=== PATIENT | male | born 1990 | race Caucasian/White ===

== ENCOUNTER 2021-06-30 15:19 | Emergency (ER) | payer OTHER, MEDICAID, SELFPAY ==
[2021-06-30 15:23] VITALS: BP 148/68; PULSE 65; RESP 18; TEMP 36.4; O2SAT 98; BMI 32.5
--- NOTE | 2021-06-30 23:18 | ED_ITS ---
HPI - Back Pain/Injury General Chief Complaint: Back Pain/Injury Stated Complaint: BACK SPASMS Time Seen by Provider: 06/30/21 23:18 Source: patient History of Present Illness HPI Narrative: Otherwise healthy 30-year-old gentleman with no significant medical history on no current medications presents with low back pain that is been present for 7 days getting progressively worse. Describes recurrent spasms as severe left- sided paraspinal back pain. He does not describe any specific injuries. Initially had found that his pain would be slightly less in the evenings and he could wake up pain-free over the last 1-2 days that is getting much more challenging. He has found that with the pain spasms hit he has increasing weakness bilaterally in his lower extremities to the point that he has almost fallen couple of times over the past 48 hours. He does not describe any radicular pain or paresthesias. He has no personal cancer history, no IV drug use no recent spinal manipulation or instrumentation. No fevers cough or chills. No abdominal pain no dysuria. No saddle paresthesia. No change to bowel or bladder habits otherwise. He notes that he has lost a couple lb recently with a bit of effort. He does not complain of any headaches. Related Data Previous Rx's Medication Instructions Recorded cyclobenzaprine 10 mg tablet 10 mg PO TID PRN #14 tab 07/01/21 Allergies Allergy/AdvReac Type Severity Reaction Status Date / Time No Known Drug Allergies Allergy Verified 06/30/21 15:26 Review of Systems Review of Systems Narrative: Remainder of complete review of systems is otherwise unremarkable except for that included in the HPI. Patient History tobacco type: smokeless tobacco Substance Use Type: does not use Exam Initial Vital Signs Initial Vital Signs: Vital Signs Temperature 97.5 F L 06/30/21 15:23 Pulse Rate 65 06/30/21 15:23 Respiratory Rate 18 06/30/21 15:23 Blood Pressure 148/68 H 06/30/21 15:23 Pulse Oximetry 98 06/30/21 15:23 General: Healthy appearing, in no acute distress. Able to give a complete and coherent history. Well-nourished well-developed HEENT: Moist mucous membranes, normal sclera with reactive pupils, Neck: No JVD, supple Respiratory: Lungs are clear to auscultation, no wheezing no rales no rhonchi. Full and symmetrical air movement Cardiac: Regular rate and rhythm no murmurs no bruits Abdomen: Soft, nontender, good bowel tones, no flank pain Skin: Warm and dry, no rashes Spine: No point tenderness along the thoracic or lumbar spine. Some minor paraspinous spasm left-sided lumbar area. Neurologic: Grossly neurologically intact with no obvious asymmetries or abnormalities. He describes his back feeling slightly tight with straight leg raising a but this does not elicit the dramatic waves of spasming pain of which he is complaining. Diminished but present bilateral patellar reflexes with normal ankle jerks bilaterally. Full sensation to lower extremities and feet bilaterally Extremities: No trauma, well perfused. Psych: Cooperative, appropriate insight and affect Course Orders Ordered: ED Orders 06/30/21 23:32 CT lumbar spine wo con Stat 06/30/21 23:59 CRP [C-Reactive Protein Quant] Stat Complete Blood Count AUTO DIFF Stat Comprehensive Metabolic Panel Stat Erythrocyte Sedimentation Rate Stat Discontinued Medications Hydromorphone HCl (Hydromorphone 1 Mg Inj) 0.5 mg IV NOW ONE Stop: 06/30/21 23:33 Last Admin: 06/30/21 23:56 Dose: 0.5 mg Documented by: MARIA Ketorolac Tromethamine (Ketorolac 30 Mg/Ml Vial) 15 mg IV NOW ONE Stop: 06/30/21 23:33 Last Admin: 06/30/21 23:56 Dose: 15 mg Documented by: MARIA Vital Signs Vital signs: Vital Signs - 8 hr 06/30/21 15:23 Temperature 97.5 F L Pulse Rate 65 Respiratory Rate 18 Blood Pressure 148/68 H Pulse Oximetry 98 MDM - Back Pain/Injury Lab Data Result diagrams: 06/30/21 23:59 06/30/21 23:59 Labs: Lab Results 06/30/21 06/30/21 06/30/21 Range/Units 23:59 23:59 23:59 WBC 7.7 (4.5-11.0) X10^3/uL RBC 5.28 (4.5-5.9) X10^6/uL Hgb 16.1 (13.5-17.5) g/dL Hct 47.4 (41-53) % MCV 89.9 (80-100) fL MCH 30.6 (26-34) PG MCHC 34.1 (30-36) % RDW 13.1 (11.6-14.8) % Plt Count 222 (150-400) X10^3/uL Neut % (Auto) 54.8 (50-75) % Lymph % (Auto) 32.4 (25-40) % Valley % (Auto) 9.6 (3-14) % Eos % (Auto) 2.7 (2-4) % Baso % (Auto) 0.5 (0-2) % Neut # (Auto) 4200 (5076-9933) /uL Lymph # (Auto) 2500 (1304-2634) /uL Valley # (Auto) 700 (0-900) /uL Eos # (Auto) 200 (0-450) /uL Baso # (Auto) 0 (0-100) /uL ESR 1 (0-15) MM/HR Sodium (137-145) mmol/L Potassium (3.4-5.1) mmol/L Chloride (98-107) mmol/L Carbon Dioxide (22-32) mmol/L BUN (9-20) mg/dL Creatinine (0.66-1.25) mg/dL Estimated GFR (>60) mL/min BUN/Creatinine Ratio (6-22) Glucose (70-100) mg/dL Calcium (8.4-10.2) mg/dL Total Bilirubin (0.2-1.3) mg/dL AST (17-59) IU/L ALT (<50) IU/L Alkaline Phosphatase (38-126) U/L C-Reactive Protein < 0.5 (<1.0) mg/dL Total Protein (6.3-8.2) g/dL Albumin (3.5-5.0) g/dL Globulin (1.7-4.1) g/dL Albumin/Globulin Ratio (1.0-2.8) 06/30/21 Range/Units 23:59 WBC (4.5-11.0) X10^3/uL RBC (4.5-5.9) X10^6/uL Hgb (13.5-17.5) g/dL Hct (41-53) % MCV (80-100) fL MCH (26-34) PG MCHC (30-36) % RDW (11.6-14.8) % Plt Count (150-400) X10^3/uL Neut % (Auto) (50-75) % Lymph % (Auto) (25-40) % Valley % (Auto) (3-14) % Eos % (Auto) (2-4) % Baso % (Auto) (0-2) % Neut # (Auto) (3220-0609) /uL Lymph # (Auto) (6319-6133) /uL Valley # (Auto) (0-900) /uL Eos # (Auto) (0-450) /uL Baso # (Auto) (0-100) /uL ESR (0-15) MM/HR Sodium 140 (137-145) mmol/L Potassium 3.8 (3.4-5.1) mmol/L Chloride 105 (98-107) mmol/L Carbon Dioxide 28 (22-32) mmol/L BUN 18 (9-20) mg/dL Creatinine 0.82 (0.66-1.25) mg/dL Estimated GFR > 60.0 (>60) mL/min BUN/Creatinine Ratio 22.0 (6-22) Glucose 77 (70-100) mg/dL Calcium 9.6 (8.4-10.2) mg/dL Total Bilirubin 0.5 (0.2-1.3) mg/dL AST 30 (17-59) IU/L ALT 35 (<50) IU/L Alkaline Phosphatase 59 (38-126) U/L C-Reactive Protein (<1.0) mg/dL Total Protein 7.6 (6.3-8.2) g/dL Albumin 4.6 (3.5-5.0) g/dL Globulin 3.0 (1.7-4.1) g/dL Albumin/Globulin Ratio 1.5 (1.0-2.8) Imaging Data CT lumbar spine : Radiologist's Impression: FINDINGS:? Image quality:? Excellent.? ? Bones:? There is normal bony alignment.? No acute vertebral body compression fractures.? No suspicious lytic or blastic bony lesions.? No pars defects.? ? T12-L1:? No significant disc bulge. The foramina and central canal are patent. ? L1-L2:? No significant disc bulge. The foramina and central canal are patent. ? L2-L3:? No significant disc bulge. The foramina and central canal are patent. ? L3-L4:? No significant disc bulge. The foramina and central canal are patent. ? L4-L5:? No significant disc bulge. The foramina and central canal are patent. ? L5-S1:? Right lateral disc bulge and right disc osteophyte causes moderate right foraminal stenosis.? The central canal is patent.? The left foramen is patent. ? Soft tissues:? No retroperitoneal masses or hematomas.? Visualized aorta is normal in caliber.? ? IMPRESSION:? 1. Disc disease at L5-S1 causing moderate right foraminal stenosis. 2. No other significant disc disease is identified by CT.? ? ? Dictated by: Stevo Moreno M.D. on 06/30/2021 at 23:58 ? ? [facility] Narrative Medical decision making narrative: Otherwise healthy 30-year-old gentleman with no specific red flags for concerning back pain presents with worsening lower back spasms coming in waves and getting progressively worse over the last week. This does not appear to be typical muscle spasm or back strain with the episodic spasms and bilateral lower extremity weakness progressively worsening. Of epidural abscess diskitis, neoplasm or bone abnormality are all entertained. Check routine blood work including CRP and sed rate and a CT scan of the lumbar spine as MRI to rule out epidural abscess is not immediately available. Lab work is reassuring, no evidence of obvious infection, CT scan does not suggest dramatically abnormal findings. He has some minor disc disease at L5- S1. He is moderately improved after Toradol and Dilaudid. He still is having some mild muscle spasm and would prefer muscle relaxant on discharge rather than narcotic to help with pain. Results are reviewed with him, questions are answered and he is safe for home discharge Discharge Plan Departure Patient Disposition: Home Clinical Impression: Back muscle spasm Clinical Impression: (Ruled Out): Back pain due to injury Instructions: DI for Back Spasm Activity Restrictions/Additional Instructions: Thank you for coming in today Your workup today did not show any pathologic explanation for your back pain. There does not seem to be infection, abscess, bone abnormalities or alternate reasons to explain your pain. At this point, I think it is appropriate to treat the pain and help with the muscle spasm. Using 400 mg of ibuprofen (2 [id number] pills) and 1 Tylenol every 6 hours can be very helpful in controlling pain. You can use cyclobenzaprine up to 3 times a day to help with muscle spasm. You may also find that alternating ice and heat his hopeful. If you have new or worsening symptoms, please feel free to return to the ER Prescriptions: New cyclobenzaprine 10 mg tablet 10 mg PO TID PRN (Reason: muscle spasm) Qty: 14 0RF Referrals: Ella Arnold MD [Primary Care Provider] -
--- NOTE | 2021-06-30 23:32 | DI.CT.S_ITS ---
PROCEDURE: CT LUMBAR SPINE WO CON INDICATIONS: Lumbar back pain, intermittent bilateral weakness LE TECHNIQUE: Noncontrast 3 mm thick sections acquired from the T12 level to the sacrum. Sagittal and coronal reformats were constructed. For radiation dose reduction, the following was used: automated exposure control. COMPARISON: None. FINDINGS: Image quality: Excellent. Bones: There is normal bony alignment. No acute vertebral body compression fractures. No suspicious lytic or blastic bony lesions. No pars defects. T12-L1: No significant disc bulge. The foramina and central canal are patent. L1-L2: No significant disc bulge. The foramina and central canal are patent. L2-L3: No significant disc bulge. The foramina and central canal are patent. L3-L4: No significant disc bulge. The foramina and central canal are patent. L4-L5: No significant disc bulge. The foramina and central canal are patent. L5-S1: Right lateral disc bulge and right disc osteophyte causes moderate right foraminal stenosis. The central canal is patent. The left foramen is patent. Soft tissues: No retroperitoneal masses or hematomas. Visualized aorta is normal in caliber. IMPRESSION: 1. Disc disease at L5-S1 causing moderate right foraminal stenosis. 2. No other significant disc disease is identified by CT. Dictated by: Stevo Moreno M.D. on 06/30/2021 at 23:58 Approved by: Stevo Moreno M.D. on 07/01/2021 at 0:06
[2021-06-30] MEDS: KETOROLAC 30 MG/ML VIAL 15 MG IV (23:56)
[2021-06-30] MEDS: HYDROMORPHONE 1 MG INJ 0.5 MG IV (23:56)
[2021-07-01 00:09] LABS: Add Manual Diff / Slide Review NO; Basophils Absolute Auto 0 /uL (0-100); Basophils Percent Auto 0.5 % (0-2); Eosinophils Absolute Auto 200 /uL (0-450); Eosinophils Percent Auto 2.7 % (2-4); Hematocrit 47.4 % (41-53); Hemoglobin 16.1 g/dL (13.5-17.5); Lymphocytes Absolute Auto 2500 /uL (1100-4500); Lymphocytes Percent Auto 32.4 % (25-40); Mean Corpuscular HGB Conc 34.1 % (30-36); Mean Corpuscular Hemoglobin 30.6 PG (26-34); Mean Corpuscular Volume 89.9 fL (80-100); Monocytes Absolute Auto 700 /uL (0-900); Monocytes Percent Auto 9.6 % (3-14); Neutrophils Absolute Auto 4200 /uL (1500-7000); Neutrophils Percent Auto 54.8 % (50-75); Platelet Count 222 X10^3/uL (150-400); Red Blood Cell Count 5.28 X10^6/uL (4.5-5.9); Red Cell Distribution Width 13.1 % (11.6-14.8); White Blood Cell Count 7.7 X10^3/uL (4.5-11.0)
[2021-07-01 00:24] LABS: Alanine Aminotransferase 35 IU/L (<50); Albumin 4.6 g/dL (3.5-5.0); Albumin Globulin Ratio 1.5 (1.0-2.8); Alkaline Phosphatase 59 U/L (38-126); Aspartate Aminotransferase 30 IU/L (17-59); Bilirubin Total 0.5 mg/dL (0.2-1.3); Blood Urea Nitrogen 18 mg/dL (9-20); Calcium 9.6 mg/dL (8.4-10.2); Carbon Dioxide 28 mmol/L (22-32); Chloride 105 mmol/L (98-107); Estimated Glomerular Filt Rate > 60.0 mL/min (>60); Glucose 77 mg/dL (70-100); HEMOLYSIS < 15 (0-50); Potassium 3.8 mmol/L (3.4-5.1); Sodium 140 mmol/L (137-145); Total Protein 7.6 g/dL (6.3-8.2)
[2021-07-01 00:26] LABS: C-Reactive Protein Quant < 0.5 mg/dL (<1.0)
[2021-07-01 00:31] LABS: Erythrocyte Sedimentation Rate 1 MM/HR (0-15)
[2021-07-01] MEDS: CYCLOBENZAPRINE 10 MG TABLET PO (01:12)
[2021-07-01 01:20] VITALS: BP 144/68; PULSE 70; RESP 16; O2SAT 98
== END 2021-07-01 01:21 | disposition home or self-care (01) ==
PROVIDERS: Emergency Provider Emergency Medicine; Family Provider Family Medicine; PCP Family Medicine
DX: M62.830 Muscle spasm of back (principal)
CPT/HCPCS: 36415; 72131; 80053; 85025; 85651; 86140; 96374; 96375; 99284; J1170; J1885